=== PATIENT | male | born 1965 | race Caucasian/White ===

== ENCOUNTER → 2021-10-22 11:15 | Outpatient (CLI) | payer OTHER, SELFPAY ==
[2021-10-22 18:37] LABS: BUN Creatinine Ratio 16.3 (6-22); Blood Urea Nitrogen 13 mg/dL (9-20); Calcium 9.2 mg/dL (8.4-10.2); Carbon Dioxide 28 mmol/L (22-32); Chloride 101 mmol/L (98-107); Cholesterol 257 mg/dL (140-199); Estimated Glomerular Filt Rate > 60 mL/min (>60); Glucose 131 mg/dL (70-100); HDL Cholesterol 76 mg/dL (40-60); HEMOLYSIS < 15 (0-50); LDL Cholesterol Calculated 141 mg/dL (<100); Potassium 4.1 mmol/L (3.4-5.1); Sodium 137 mmol/L (137-145); Triglycerides 202 mg/dL (35-150)
[2021-10-22 18:38] LABS: Hemoglobin A1C% w Est Avg Glu 5.5 % (4.0-6.0)
== END ==
PROVIDERS: PCP Family Medicine; Visit Provider Family Medicine
DX: I10 Essential (primary) hypertension (principal); Z13.1 Encounter for screening for diabetes mellitus; Z13.220 Encounter for screening for lipoid disorders
CPT/HCPCS: 80048; 80061; 83036

== ENCOUNTER → 2022-01-18 13:06 | Outpatient (CLI) | payer OTHER, SELFPAY | PROVIDERS: PCP Family Medicine; Visit Provider Family Medicine | DX: R19.7 Diarrhea, unspecified (principal) | CPT/HCPCS: 87045; 87899 ==

== ENCOUNTER → 2022-02-09 12:22 | Outpatient (CLI) | payer OTHER, SELFPAY ==
[2022-02-09 19:59] LABS: Alanine Aminotransferase 51 IU/L (<50); Albumin 4.4 g/dL (3.5-5.0); Albumin Globulin Ratio 1.7 (1.0-2.8); Alkaline Phosphatase 71 U/L (38-126); Aspartate Aminotransferase 37 IU/L (17-59); Bilirubin Total 0.8 mg/dL (0.2-1.3); Bilirubin Unconjugated 0.5 mg/dL (0.0-1.1); Globulin 2.6 g/dL (1.7-4.1); HEMOLYSIS 20 (0-50)
[2022-02-09 20:37] LABS: TSH w/ Reflex to FT4 1.07 uIU/mL (0.47-4.68)
== END ==
PROVIDERS: PCP Family Medicine; Visit Provider Family Medicine
DX: R19.7 Diarrhea, unspecified (principal)
CPT/HCPCS: 80076; 84443

== ENCOUNTER → 2022-02-16 09:43 | Outpatient (CLI) | payer OTHER, SELFPAY ==
[2022-02-24 06:57] LABS: Calprotectin, Stool 368 ug/g (0-120)
== END ==
PROVIDERS: PCP Family Medicine; Visit Provider Family Medicine
DX: R19.7 Diarrhea, unspecified (principal)
CPT/HCPCS: 83993; 87177

== ENCOUNTER → 2022-02-28 13:13 | Outpatient (CLI) | payer OTHER, SELFPAY ==
[2022-02-28 14:50] LABS: COVID19 -Nasal RAPID Negative (Negative)
== END ==
PROVIDERS: PCP Family Medicine; Visit Provider Surgery
DX: Z01.812 Encounter for preprocedural laboratory examination (principal); Z20.822 Contact with and (suspected) exposure to COVID-19
CPT/HCPCS: 87635; C9803

== ENCOUNTER 2022-03-01 14:00 | Day surgery (SDC) | payer OTHER, SELFPAY ==
[2022-03-01] VITALS (7 sets, daily range): BP systolic 139–175; BP diastolic 93–120; PULSE 84–104; RESP 14–18; TEMP 36.2–36.7; O2SAT 94–98; BMI 28.2
--- NOTE | 2022-03-01 | PATH_ITS ---
[facility] Accession Number: [id number] . 01 Material submitted: . rectum - RECTAL BIOPSY . 01 Clinical history: . COLONOSCOPY CHANGE IN BOWEL HABIT . 01 Diagnosis: Rectum, Biopsy: Moderately active colitis with associated distortion of the crypt architecture. Please see comment. Negative for granulomas, dysplasia, and malignancy. MRV 03/03/2022 0930 Local . 01 Comment: No obvious viral cytopathic effects or parasitic organisms are identified. The rectal biopsies show moderate neutrophilic activity including cryptitis and crypt abscesses. There is associated increased lymphocytes, plasma cells and eosinophils in the lamina propria, branched crypt architecture and shortened crypt length consistent with chronic inflammation. The differential diagnosis includes infection, medication-related mucosal injury, idiopathic inflammatory bowel disease and trauma/prolapse. . 01 Electronically signed: . Soni Bonilla MD, Pathologist NPI- [id number] . 01 Gross description: . RECTAL BIOPSY: Received in formalin are 4 fragment(s) of mike, soft tissue measuring 0.5 x 0.2 x 0.2 cm to 0.3 x 0.2 x 0.1 cm submitted entirely in 1 cassette(s) /CPE 03/02/2022 0912 Local . 01 Pathologist provided ICD-10: R19.4 . 01 CPT . 568138 Performed at: 01 [facility] [address] [place] [address] [address], [place], [place] [id number] MD René Spencer MD Phone: [phone]
[2022-03-01] MEDS: LACTATED RINGERS 1,000 ML 200 ML IV (14:27)
--- NOTE | 2022-03-01 15:40 | PM.PREOP ---
Pre-operative Note Interval Note History & Physical reviewed/Exam performed by Physician: Yes Changes to H&P: No
[2022-03-01] MEDS: fentaNYL 100 MCG/2 ML INJ 250 MCG IV (16:03)
[2022-03-01] MEDS: MIDAZOLAM 5 MG/5 ML VIAL 11 MG IV (16:03)
--- NOTE | 2022-03-01 16:19 | P.OP.COLON_ITS ---
Operative Date/Time/Diagnoses Date of procedure: 03/01/22 Time of procedure: 16:20 Pre-op diagnosis: Rectal bleeding Post-op diagnosis: other (Proctitis) Procedure & Clinicians Study performed: Colonoscopy and biopsy Same procedure as scheduled: Yes Indications: 56-year-old man with painful bright red blood per rectum Surgeon: Davy Martini Procedure Notes Procedure in detail: Medications: Conscious sedation using 11mg IV midazolam and 250mcg IV of fentanyl The history and physical was performed/updated and the patient is ASA class is 2. The procedure was discussed in detail with the patient. Potential risks complications including infection, bleeding, missed diagnosis, perforation, need for surgery, and were explained. Their questions were answered and informed consent was obtained. Patient was brought to the procedure room and placed standard monitoring equipment. The patient's vital signs were monitored continuously throughout the entire procedure. Prior to starting time-out was performed. The patient was p laced in the left lateral recumbent position. Procedural sedation was administered. Examination began with a thorough inspection of the perianal area there was no evidence of fissures, fistulae, external hemorrhoids or cutaneous malignancy. The colonoscopy scope was then placed into the anal canal and was advanced to the cecum, which was identified by the ileocecal valve, the appendiceal orifice and the confluence of the taenia. The scope was then inserted into the ileocecal valve and the terminal ileum was examined normal in appearance. The scope was then slowly withdrawn examining colon thoroughly in all directions, irrigating it of any residual stool. Multiple biopsies of the rectum or performed with biopsy forceps FINDINGS 1. No masses or polyps 2. Severe proctitis. The remainder of the colon and terminal ileum were normal The patient tolerated the procedure well. They will be discharged once criteria are met. The prep was of good/excellent quality. The withdrawl time was 12* minutes. The sedation time was 27 minutes. Specimen(s): other (Rectum) Complications: none Impression: Proctitis. Suspect Crohn's disease Post-procedure Plan for aftercare: Start mesalamine 1000 mg twice daily. Will follow up with biopsy results
--- NOTE | 2022-03-01 16:49 | SUR.PHASEII ---
Patient remains hypertensive at 168/120 but baseline blood pressure on arrival to pre-op was 176/105. Patient asymptomatic and denies headache, blurred vision, or any neurological symptoms. Called Dr Martini and left voicemail regarding blood pressure and approval to discharge patient home. Awaiting call back. Report given to Shonda Norton RN
--- NOTE | 2022-03-01 17:11 | SUR.PHASEII ---
Dr Martini notified dof patient BP 66/111 on prior to discharge and 175/106. Per MD patient may discharge to go home. Pt instruction to continue to follow his BP at home and to call his doctor for 160/100 and goal BP is 140/80 as pt stated he did not know his numbers at home or what it should be. updated at car upon discharge.
== END 2022-03-01 17:20 | disposition home or self-care (01) ==
PROVIDERS: PCP Family Medicine; Referring Provider Surgery; Visit Provider Surgery
PROC: 0DJD8ZZ Inspection of Lower Intestinal Tract, Via Natural or Artificial Opening Endoscopic (ICD-10-PCS; CPT 45378; principal; 2022-03-01 15:45)
DX: K62.89 Other specified diseases of anus and rectum (principal); K62.5 Hemorrhage of anus and rectum
CPT/HCPCS: 45380; 99152; 99153; J2250; J3010

== ENCOUNTER → 2023-02-27 08:17 | Outpatient (CLI) | payer OTHER, SELFPAY ==
[2023-02-27 19:33] LABS: Add Manual Diff / Slide Review NO; Basophils Absolute Auto 0 /uL (0-100); Basophils Percent Auto 0.5 % (0-2); Eosinophils Absolute Auto 100 /uL (0-450); Eosinophils Percent Auto 1.3 % (2-4); Hematocrit 47.4 % (41-53); Hemoglobin 16.7 g/dL (13.5-17.5); Lymphocytes Absolute Auto 1700 /uL (1100-4500); Lymphocytes Percent Auto 23.9 % (25-40); Mean Corpuscular HGB Conc 35.1 % (30-36); Mean Corpuscular Hemoglobin 33.3 PG (26-34); Mean Corpuscular Volume 94.7 fL (80-100); Monocytes Absolute Auto 700 /uL (0-900); Monocytes Percent Auto 9.4 % (3-14); Neutrophils Absolute Auto 4700 /uL (1500-7000); Neutrophils Percent Auto 64.9 % (50-75); Platelet Count 213 X10^3/uL (150-400); Red Blood Cell Count 5.01 X10^6/uL (4.5-5.9); Red Cell Distribution Width 12.8 % (11.6-14.8); White Blood Cell Count 7.2 X10^3/uL (4.5-11.0)
[2023-02-27 19:36] LABS: Blood Urea Nitrogen 16 mg/dL (9-20); Calcium 10.1 mg/dL (8.4-10.2); Carbon Dioxide 27 mmol/L (22-32); Chloride 98 mmol/L (98-107); Cholesterol 278 mg/dL (140-199); Estimated Glomerular Filt Rate > 60 mL/min (>60); Glucose 109 mg/dL (70-100); HDL Cholesterol 80 mg/dL (40-60); HEMOLYSIS 37 (0-50); LDL Cholesterol Calculated 161 mg/dL (<100); Potassium 4.4 mmol/L (3.4-5.1); Sodium 135 mmol/L (137-145); Triglycerides 184 mg/dL (35-150)
== END ==
PROVIDERS: PCP Family Medicine; Visit Provider Family Medicine
DX: E78.2 Mixed hyperlipidemia (principal); I10 Essential (primary) hypertension
CPT/HCPCS: 80048; 80061; 85025

== ENCOUNTER → 2024-04-25 10:35 | Outpatient (CLI) | payer OTHER, SELFPAY ==
[2024-04-25 19:05] LABS: Add Manual Diff / Slide Review NO; Basophils Absolute Auto 0 /uL (0-100); Basophils Percent Auto 0.3 % (0-2); Eosinophils Absolute Auto 100 /uL (0-450); Eosinophils Percent Auto 1.7 % (2-4); Hemoglobin 16.3 g/dL (13.5-17.5); Lymphocytes Absolute Auto 1200 /uL (1100-4500); Lymphocytes Percent Auto 21.1 % (25-40); Mean Corpuscular HGB Conc 35.4 % (30-36); Mean Corpuscular Hemoglobin 33.7 PG (26-34); Mean Corpuscular Volume 95.2 fL (80-100); Monocytes Absolute Auto 600 /uL (0-900); Monocytes Percent Auto 11.2 % (3-14); Neutrophils Absolute Auto 3600 /uL (1500-7000); Neutrophils Percent Auto 65.7 % (50-75); Platelet Count 251 X10^3/uL (150-400); Red Blood Cell Count 4.83 X10^6/uL (4.5-5.9); Red Cell Distribution Width 12.9 % (11.6-14.8); White Blood Cell Count 5.5 X10^3/uL (4.5-11.0)
[2024-04-25 19:10] LABS: BUN Creatinine Ratio 14.5 (6-22); Blood Urea Nitrogen 11 mg/dL (9-20); Calcium 9.8 mg/dL (8.4-10.2); Carbon Dioxide 28 mmol/L (22-32); Chloride 97 mmol/L (98-107); Cholesterol 258 mg/dL (140-199); Estimated Glomerular Filt Rate > 60 mL/min (>60); Glucose 118 mg/dL (70-100); HDL Cholesterol 71 mg/dL (40-60); HEMOLYSIS < 15 (0-50); LDL Cholesterol Calculated 155 mg/dL (<100); Potassium 4.2 mmol/L (3.4-5.1); Sodium 132 mmol/L (137-145); Triglycerides 161 mg/dL (35-150)
== END ==
PROVIDERS: PCP Family Medicine; Visit Provider Family Medicine
DX: Z79.899 Other long term (current) drug therapy (principal); K51.20 Ulcerative (chronic) proctitis without complications; E78.2 Mixed hyperlipidemia; I10 Essential (primary) hypertension
CPT/HCPCS: 80048; 80061; 85025